=== PATIENT | female | born 1990 | race Caucasian/White ===

== ENCOUNTER 2018-07-07 04:40 | Inpatient (IN) | payer OTHER ==
--- NOTE | 2018-07-07 05:19 | HP ---
General Information - Reason for Visit Patient with at 37 5/7 weeks EGA, presents with ruptured membranes. She is GBS positive and penicillin allergic (Hives/Rash). - General Information Maternal Age: 27 Grav: 1 Para: 0 SAB: 0 IEA: 0 Estimated Due Date: 07/23/18 Determined By: LMP Gestational Age in Weeks/Days: 37 5/7 Maternal Blood Type and Rh: B Positive - Results this Serology/RPR Result: Non-Reactive Rubella Result: Immune HBsAg Result: Negative HIV Result: Negative GBS Culture Result: Positive Past Medical History Delivery History: See Records Pertinent Past Medical History: See Records Past Medical History Comment: None Pertinent Past Surgical History: See Records Past Surgical History Comment: None Pertinent Family History: See Records - Breast Cancer - Antepartal Records Antepartal Records: Reviewed, Uncomplicated Review of Systems Constitutional: Comfortable CV Complaint: No Respiratory: Shortness of Breath: No Gastrointestinal: No Nausea/Vomiting, Normal Bowel Movement Genitourinary: Leaking Fluid, No Dysuria, No Bleeding Musculoskeletal: No Complaint, No Epigastric Pain Neurological: No Headache, No Visual Changes Movement: Normal Exam Allergies/Adverse Reactions: Allergies Penicillins Allergy (Verified 07/07/18 05:20) Hives Temp 97.8 BP130/88 P 82 RR 18 Lab Values - Entire Visit: CBC, Blood Type/screen pending. - Measurements Height: 5 ft 6 in Weight: 184 lb Body Mass Index (BMI): 29.7 Pre- Weight: 125 lb - Exam Breast: Breast Exam Deferred CVA: No CVA Tenderness Extremities: No Edema Heart: Normal Rhythm/Heart Sounds HEENT: No Significant Findings Lungs: Clear Bilaterally Rectal: Rectal Exam Deferred Reflexes: DTR 2+ Thyroid: No Thyromegaly - Abdominal Exam Abdomen Exam: Non-Tender, Fundal Height Consistent with Dates - Ultrasound/Biophysical Profile Ultrasound Status: Not Done Targeted Exam Findings See L&D Outpatient Visit Provider Note for Findings: N/A Estimated Weight: 3500gms Cervical Exam: 4cm Effacement: 80% Station: -1 Presenting Part: Vertex Membrane Status: SROM - 2 am 07/07/18 Amniotic Fluid Evaluation: Gross Rupture, Clear EFM Findings - External Monitor Findings Baseline Heart Rate: 130 External Monitor Findings: Accelerations Present Contractions: Regular - q 6 minutes apart, Mild, < 45 Seconds Assessment/Plan - Assessment at 37 5/7 weeks with SROM, GBS positive, 4cm dilated with regular contractions. - Obstetrical Risk Factors Obstetrical Risk Factors: GBS Positive - Plan Plan: IV Hydration, Antibiotic Prophylaxis, Admit - Anticipate Vaginal Delivery - Date/Time of Admission Date of Admission: 07/07/18 Time of Admission: 05:15
[2018-07-07 05:53] LABS: ABS Basophils 0.1 10^3/ul (0-0.2); ABS Eosinophils 0.1 10^3/ul (0-0.6); ABS Lymphocytes 2.2 10^3/ul (1.0-4.8); ABS Monocytes 0.7 10^3/ul (0-0.8); ABS Nucleated RBC 0 10^3/ul; Eosinophil % 0.9 % (0-6); Hematocrit 34 % (35-47); Hemoglobin 11.9 g/dl (12.0-16.0); Lymphocyte % 19.9 % (25-47); Mean Corpuscular HGB Conc 35 g/dl (31-36); Mean Corpuscular Hemoglobin 30 pg (27-31); Mean Corpuscular Volume 86 fL (80-97); Mean Platelet Volume 7.2 um3 (7.4-10.4); Nucleated Red Blood Cells % 0; Platelet Count 341 10^3/ul (150-450); Red Cell Distribution Width 14 % (10.5-15); White Blood Count 11.1 10^3/ul (3.5-10.8)
[2018-07-07] MEDS ORDERED: Clindamycin 900 MG/D5W BAG(*) 900 MG/50 ML BAG IVPB ONE (05:53)
[2018-07-07] MEDS ORDERED: Clindamycin 900 MG IVPREMIX(* 900 MG/50 ML SDV IV SCH (06:00)
[2018-07-07] MEDS ORDERED: Oxytocin in LR* 20 UNITS/1,000 ML BAG IVPB ONE (11:47)
[2018-07-07] MEDS ORDERED: Dibucaine 1% 28.35 GM TUBE PR PRN (12:09)
[2018-07-07] MEDS ORDERED: Witch Hazel PAD* JAR TOPICAL PRN (12:09)
[2018-07-07] MEDS ORDERED: Acetaminophen TAB* 325 MG PO PRN (12:09)
[2018-07-07] MEDS ORDERED: Glycerin ADULT SUPP PR PRN (12:09)
--- NOTE | 2018-07-07 12:14 | PROCNOTE ---
[facility] OB: Delivery Note - Delivery A Date of : 07/07/18 Time of : 11:35 Sex: Male Weight at : 6 lb 8 oz Score 1 Minute: 9 Score 5 Minutes: 9 Gestational Age in Weeks and Days at Delivery: 37 Weeks and 5 Days Delivery Method: Spontaneous Vaginal Labor: Spontaneous Did Patient attempt ?: N/A, No Previous Amniotic Fluid: Clear Estimated Blood Loss: 350 Anesthesia/Analgesia: Nitrous-Labor Delivered By: Felipe Strong - Nursery Level of Nursery: Regular/Bedside - Perineum Perineal Injury: Perineal Laceration, 2nd Degree Perineal Repair: By Delivering Practioner - repaired with 3-0 polysorb and 8cc 1 % lidocaine local anesthetic - Events Delivery Events of Note: Pitocin Only After Delivery Delivery Events of Note Comment: Nuchal cord X 3
[2018-07-07] MEDS ORDERED: Simethicone TAB* 80 MG TAB.CHEW PO SCH (12:30)
[2018-07-07] MEDS: Docusate CAP* 100 MG PO SCH ×2 (14:58→21:01)
[2018-07-07] MEDS ORDERED: Witch Hazel PAD* JAR ONE (18:09)
[2018-07-07] MEDS: Ibuprofen TAB* 600 MG PO PRN (18:11)
[2018-07-08 06:52] LABS: ABS Basophils 0 10^3/ul (0-0.2); ABS Eosinophils 0.1 10^3/ul (0-0.6); ABS Lymphocytes 3.1 10^3/ul (1.0-4.8); ABS Monocytes 0.9 10^3/ul (0-0.8); ABS Nucleated RBC 0 10^3/ul; Eosinophil % 0.5 % (0-6); Hematocrit 30 % (35-47); Hemoglobin 10.2 g/dl (12.0-16.0); Lymphocyte % 20.2 % (25-47); Mean Corpuscular HGB Conc 35 g/dl (31-36); Mean Corpuscular Hemoglobin 30 pg (27-31); Mean Corpuscular Volume 87 fL (80-97); Mean Platelet Volume 7.1 um3 (7.4-10.4); Nucleated Red Blood Cells % 0.1; Platelet Count 327 10^3/ul (150-450); Red Blood Count 3.38 10^6/ul (4.00-5.40); Red Cell Distribution Width 14 % (10.5-15); White Blood Count 15.1 10^3/ul (3.5-10.8)
[2018-07-08] MEDS: Docusate CAP* 100 MG PO SCH ×3 (09:24→20:16)
[2018-07-08] MEDS: Ferrous Gluconate TAB* 324 MG TAB PO SCH (12:00)
[2018-07-08] MEDS: Ibuprofen TAB* 600 MG PO PRN (20:16)
[2018-07-09 08:14] VITALS: BP 124/82
[2018-07-09] MEDS: Docusate CAP* 100 MG PO SCH (09:35)
[2018-07-09] MEDS: Ferrous Gluconate TAB* 324 MG TAB PO SCH (09:36)
--- NOTE | 2018-07-09 10:01 | PTEDU ---
Patient Name: ELLA LANCASTER ANISHAELLA selected video: Never Ever Shake a Baby to view on 07/09/2018 at 10:00:[address] [id number]
== END 2018-07-09 12:31 | disposition home or self-care (01) | DRG 560 ==
LOC: MCHOBOUT 04:40 → MCHOB 04:57
PROVIDERS: ADMIT Obstetrics & Gynecology; ATTEND Obstetrics & Gynecology
PROC: 10E0XZZ Delivery of Products of Conception, External Approach (ICD-10-PCS; principal; 2018-07-07)
PROC: 0KQM0ZZ Repair Perineum Muscle, Open Approach (ICD-10-PCS; 2018-07-07)
DX: O42.02 Full-term premature rupture of membranes, onset of labor within 24 hours of rupture (principal); Z37.0 Single live birth; O99.824 Streptococcus B carrier state complicating childbirth; O69.81X0 Labor and delivery complicated by cord around neck, without compression, not applicable or unspecified; O70.1 Second degree perineal laceration during delivery; Z3A.37 37 weeks gestation of pregnancy
CPT/HCPCS: 36415; 85025; 86850; 86900; 86901; A9270-GY